=== PATIENT | female | born 1950 | race Caucasian/White ===

== ENCOUNTER 2016-05-28 22:42 | Emergency (ER) | payer OTHER ==
[~2016-05-28] VITALS: Ht 160 cm; Wt 72.0 kg
[~2016-05-28 22:42] MED LIST: CYCL5TAB PO; HYDR10SO PO; IBUP100S PO; MORP60TA20 PO; XANA1TAB6 PO
[2016-05-28 22:48] VITALS: BP 124/79; PULSE 91; RESP 18; TEMP 98.2; O2SAT 98
[2016-05-28] MEDS ORDERED: HYDR-3583 PO (23:35)
[2016-05-28] MEDS ORDERED: CYCL1TAB29 PO (23:35)
[2016-05-28] MEDS ORDERED: IBUP400T20 PO (23:35)
[2016-05-28] MEDS ORDERED: XANA1TAB2 PO (23:35)
[2016-05-28] MEDS ORDERED: MORP1TAB26 PO (23:35)
[2016-05-28 23:36] VITALS: BP 124/79; PULSE 91; RESP 18; TEMP 98.2; O2SAT 98
--- NOTE | 2016-05-28 23:43 | PD ---
HPI . Neck and right shoulder pain Chief Complaint: Back/ Neck Pain or Injury Time Seen by Provider: 23:30 Travel History International Travel<30 days: No Contact w/Intl Traveler<30days: No History of Present Illness HPI Patient presents complaining with neck and right shoulder pain. This is been an ongoing issue for quite a long time. She states that it has been worse for 3 months. She is followed in a pain clinic for same. He has developed radicular symptoms in that she has pain with associated numbness and tingling down to the middle of her right hand. She states that her pain clinic doctor is aware. She states that she presents to us tonight because she was unable to sleep as of the pain last night. She states that she was hoping that we would give her an injection so that she can go home and go to bed. The patient does not report any acute symptoms tonight. All of her symptoms have been ongoing for months to years. PFSH Past Medical History Diminished Hearing: No Musculoskeletal: Yes (CHRONIC BACK AND NECK PAIN) Immunizations Current: Yes Menopausal: Yes Past Surgical History Hysterectomy: Yes Tonsillectomy: Yes Social History Alcohol Use: Yes (OCCASIONAL) Tobacco Use: No Substance Use: No Allergies-Medications (Allergen,Severity, Reaction): Coded Allergies: No Known Allergies (Verified , 05/28/16) Reported Meds & Prescriptions Reported Meds & Active Scripts Active Reported Ibuprofen 400 Mg Tab 400 Mg PO QID Xanax (Alprazolam) 1 Mg Tab 1 Mg PO Q6H PRN Morphine ER (Morphine Sulfate) 60 Mg Tab 60 Mg PO Q8H Flexeril (Cyclobenzaprine HCl) 10 Mg Tab 10 Mg PO TID Hydrocodone-Acetaminophen 10-325 mg Tab 1 Tab PO Q6H PRN Review of Systems Except as stated in HPI: all other systems reviewed are Neg General / Constitutional: No: Fever, Chills Musculoskeletal: Positive: Myalgias, Arthralgias Neurologic: Positive: Paresthesia Physical Exam Narrative GENERAL: Awake and alert and in no acute distress. SKIN: Warm and dry. CARDIOVASCULAR: Regular rate and rhythm. RESPIRATORY: No accessory muscle use. MUSCULOSKELETAL: No obvious deformities. No edema. Decreased range of motion of the right shoulder. She is right tender in the right upper back and there is a palpable spasm. NEUROLOGICAL: Awake and alert. No obvious cranial nerve deficits. Motor grossly within normal limits. Normal speech. PSYCHIATRIC: Appropriate mood and affect; insight and judgment normal. Data Data Last Documented VS Vital Signs Date Time Temp Pulse Resp B/P Pulse Ox O2 Delivery O2 Flow Rate FiO2 05/28/16 22:48 98.2 91 18 124/79 98 MDM Medical Decision Making Medical Screen Exam Complete: Yes Emergency Medical Condition: Yes Differential Diagnosis Differential diagnosis includes muscle spasm, cervical radiculopathy, degenerative arthritis, rotator cuff injury Narrative Course Patient presents with chronic neck and right shoulder pain with associated radicular symptoms. She is followed in the pain clinic for same. She does not report any acute symptoms tonight. I will give her a shot of morphine and Ativan and discharge her to home. Diagnosis Primary Impression: Chronic pain Qualified Code: G89.4 - Chronic pain syndrome Patient Instructions: Chronic Neck Pain (DC), General Instructions Disposition: 01 DISCHARGE HOME Condition: Stable Yanelis Castellanos MD May 28, 2016 23:43
[2016-05-28] MEDS ORDERED: LORazepam 2 MG/ML VIAL IM ONE (23:45)
[2016-05-28] MEDS ORDERED: MORPHINE SULFATE 4 MG/ML INJ IM ONE (23:45)
[2016-05-28 23:54] VITALS: RESP 16
== END 2016-05-29 00:22 | disposition home or self-care (01) ==
LOC: PHED 22:42 → PHEFT 05-29 00:22
DX: G89.4 Chronic pain syndrome (principal); M54.2 Cervicalgia; M25.511 Pain in right shoulder; R20.0 Anesthesia of skin; R20.2 Paresthesia of skin; Z87.39 Personal history of other diseases of the musculoskeletal system and connective tissue
CPT/HCPCS: 96372; 99283; J2060; J2270